=== PATIENT | male | born 1985 | race African-American/Black ===

== ENCOUNTER 2020-11-16 13:58 | Emergency (ER) | payer OTHER ==
[~2020-11-16] VITALS: Ht 170.2 cm; Wt 83.0 kg
[2020-11-16] MEDS ORDERED: CYCLOBENZAPRINE HCL 10 MG TAB PO ONE (14:30)
[2020-11-16] MEDS ORDERED: KETOROLAC TROMETHAMINE 60 MG/2 ML VIAL IM ONE (14:30)
[2020-11-16] MEDS ORDERED: CYCLOBENZAPRINE HCL 10 MG TAB ONE (15:00)
[2020-11-16] MEDS ORDERED: KETOROLAC TROMETHAMINE 60 MG/2 ML VIAL ONE (15:01)
[2020-11-16] MEDS ORDERED: PREDNISONE20 MG PO (16:05)
[2020-11-16] MEDS ORDERED: CYCLOBENZAPRINE5 MG PO (16:05)
[2020-11-16 16:16] VITALS: BP 110/75
== END 2020-11-16 16:22 | disposition home or self-care (01) ==
LOC: FSED 14:12
DX: S93.402A Sprain of unspecified ligament of left ankle, initial encounter (principal); R10.31 Right lower quadrant pain; R10.32 Left lower quadrant pain; X50.0XXA Overexertion from strenuous movement or load, initial encounter; Y92.138 Other place on military base as the place of occurrence of the external cause
CPT/HCPCS: 73610; 96372; 99283; J1885